=== PATIENT | female | born 1955 | race Caucasian/White ===

== ENCOUNTER 2016-12-26 09:38 | Outpatient (CLI) | payer BC ==
--- NOTE | 2016-12-26 10:06 | MMO ---
BILATERAL SCREENING MAMMOGRAM: DATE: 12/26/2016 HISTORY: A 61-year-old female for screening mammography. COMPARISON: 11/11/2010, 12/05/2009, 12/01/2008. FINDINGS: Bilateral MLO and CC views of the breasts show scattered fibroglandular breast tissue. Benign-appear ing calcifications are seen in both breasts. There is no evidence of suspicious mass, suspicious clu ster of microcalcifications, or area of architectural distortion. Interpretation of this mammogram was performed with the assistance of computer-aided detection. IMPRESSION: BIRADS 2: Benign Finding(s) Annual screening mammography is recommended. POS: MARY
== END 2016-12-26 09:39 | disposition home or self-care (01) ==
LOC: MAMMO 09:38
PROVIDERS: ATTEND Family Medicine
DX: Z12.31 Encounter for screening mammogram for malignant neoplasm of breast (principal)
CPT/HCPCS: 77067; G0202

== ENCOUNTER 2017-05-25 11:15 | Outpatient (CLI) | payer BC ==
--- NOTE | 2017-05-25 12:35 | RAD ---
FIVE VIEWS LUMBAR SPINE: HISTORY: Radiating pain in back for 1 week, M54.32. FINDINGS: AP, lateral, coned down, flexion, and extension views lumbar spine are obtained. Images demonstrate 5 [id number] lumbar vertebrae. Disk space height loss with vacuum disk hernandez es seen throughout the lumbar spine. Anterior osteophytes are seen in the lumbar spine. There is mi ld anterolisthesis of L4 on L5. No evidence of abnormality is seen on flexion or extension. IMPRESSION: Multilevel lumbar changes of spondylosis. No evidence of acute fractures or bony lesions seen. POS: MARY
== END 2017-05-25 11:16 | disposition home or self-care (01) ==
LOC: SCSRAD 11:15
PROVIDERS: ATTEND Nurse Practitioner Family
DX: M54.32 Sciatica, left side (principal); M47.896 Other spondylosis, lumbar region
CPT/HCPCS: 72110

== ENCOUNTER 2017-06-01 12:29 | Outpatient (CLI) | payer BC ==
--- NOTE | 2017-06-01 15:47 | MRI ---
MRI OF LUMBAR SPINE WITHOUT CONTRAST: Date: 06/01/17 HISTORY: Spondylolisthesis, sciatica, pain. TECHNIQUE: Multiplanar, multisequence MR imaging of the lumbar spine is provided without contrast. FINDINGS: The sagittal STIR imaging demonstrates no focal area of osseous marrow edema. Assuming five lumbar-ty pe vertebral bodies, the conus medullaris terminate at the T12 level. T12-L1: There is disc space narrowing, disc desiccation, anterior osteophyte formation, and mild disc bulge. There is bilateral facet hypertrophy. There is no significant central canal or neural foraminal steno sis. L1-2: There is disc space narrowing, disc desiccation, and disc bulge with a small central disc protrusion demonstrating minimal inferior migration. Disc protrusion also demonstrates extension into the left p aracentral region and left foraminal region. There is minimal left lateral recess stenosis/left neura l foraminal stenosis. No significant right neural foraminal stenosis. L2-3: There is disc space narrowing, disc desiccation, and disc bulge. There is a left paracentral disc her niation with inferior migration causing a mild degree of left lateral recess stenosis. There is bilat eral facet and uncovertebral osteophyte formation with no significant neural foraminal stenosis on ei ther side. L3-4: There is disc space narrowing, disc desiccation, and mild disc bulge, as well as moderate bilateral f acet hypertrophy and hypertrophy of ligamentum flavum, right greater than left. There is mild central canal stenosis. There is mild right neural foraminal stenosis and mild right lateral recess stenosis . No significant left neural foraminal stenosis. L4-5: There is anterolisthesis of L4 on L5 measuring approximately 1.0 cm. There is a probable unilateral L 4 pars defect on the right. There is disc bulge and prominent facet hypertrophy, left greater than ri ght. There is moderate central canal stenosis and prominent left lateral recess stenosis. There is se maciej left neural foraminal stenosis and moderate right neural foraminal stenosis. L5-S1: There is disc space narrowing and disc desiccation with prominent bilateral facet hypertrophy. Questi on unilateral right-sided pars defect at L5. No significant central canal stenosis. There is moderate /severe left neural foraminal stenosis. There is no significant right neural foraminal stenosis. The imaged retroperitoneal structures appear grossly unremarkable. IMPRESSION: Multilevel degenerative change noted within the lumbar spine. Question unilateral right-sided pars de fects at L4 and L5. There is prominent lower lumbar spine neural foraminal stenosis on the left at L4 -5 and L5-S1. Evaluation for underlying pars defects would be better assessed via follow-up lumbar sp ine CT exam. POS: MARY
== END 2017-06-01 12:30 | disposition home or self-care (01) ==
LOC: SCSMRI 12:29
PROVIDERS: ATTEND Family Medicine
DX: M54.32 Sciatica, left side (principal); M43.16 Spondylolisthesis, lumbar region; M47.896 Other spondylosis, lumbar region; M48.061 Spinal stenosis, lumbar region without neurogenic claudication
CPT/HCPCS: 72148

== ENCOUNTER 2017-07-16 08:00 | Outpatient (CLI) | payer BC ==
--- NOTE | 2017-07-16 10:36 | RAD ---
LUMBAR SPINE 4 VIEWS: Date: 07/16/17 HISTORY: Low back pain. FINDINGS: There are five lumbar-type vertebrae. Pedicles are intact. Prominent S-shaped rotatory scoliotic curv ature is apparent on the frontal view. Vertebral body heights are maintained. Disc space narrowing is present at the upper four levels. There is minimal degenerative retrolisthesi s at the L1-2 and L2-3 levels, and Grade I spondylolisthesis at the L4-5 level without abnormal trans lational motion upon flexion or extension. Osteophytosis is present throughout the vertebral bodies a nd facets. IMPRESSION: Prominent lumbar spondylosis. No abnormal translational motion or other acute osseous abnormalities. POS: STACEY
--- NOTE | 2017-07-16 10:59 | CT ---
CT LUMBAR SPINE NONCONTRAST: DATE: 07/16/17. HISTORY: A 62-year-old female with M54.16 lumbar radiculopathy, spondylolisthesis. Evaluate for pars defect ( spondylolysis). FINDINGS: There are 5 lumbar-type vertebrae. The vertebral body heights are maintained. Left lateral curvatur e of lower lumbar spine and mild right lateral curvature of upper lumbar spine. Grade I right latera l subluxation of L3 on L4. Grade I left lateral subluxation of L4 on L5. Disk space narrowing at all levels, moderate to severe at T11-T12, T12-L1, L1-2, L2-3, and L4-5. Dis k space narrowing moderate at L3-4 and L5-S1. Vacuum disk phenomenon at all levels except L3-4. Deg enerative facet changes are moderate bilaterally at L3-4, right worse than left, severe on the left a t L4-5, and severe on the left at L5-S1. T11-12: No central or neural foraminal stenosis. Minimal disk bulge. T12-L1: Minimal disk bulge. No central or neural foraminal stenosis. L1-2: Mild degenerative retrolisthesis of L1 on L2. Diffuse disk bulge-broad osteophytic bar comple x. Inferior migration of extruded disk material a short distance, central and left paracentral. Mil d central spinal canal stenosis. Mild bilateral neural foraminal stenosis. L2-3: Degenerative retrolisthesis of L2 on L3. In addition to mild diffuse disk bulge, there is a c entral and left paracentral disk extrusion (containing vacuum disk phenomenon) inferiorly migrating d own to the L3 mid pedicle level. Mild central spinal canal stenosis. Mild to moderate thoracic spin e stenosis. Mild bilateral neural foraminal stenosis. L3-4: Degenerative retrolisthesis of L3 on L4. Diffuse disk bulge. Moderate central spinal canal s tenosis. Moderate to severe thecal sac stenosis. Moderate to severe right neural foraminal stenosis . Mild to moderate left neural foraminal stenosis. L4-5: There is absence of the right facet joint due to absence of bone. This appears to be due to r ight L4 inferior facetectomy and right superior L5 facetectomy. This, together with the severe left degenerative facet disease, causes a grade I anterolisthesis of L4 on L5. Diffuse disk bulge. Moder ate to severe right neural foraminal stenosis. Very severe left neural foraminal stenosis. Severe c entral spinal canal stenosis. There is a left L5 laminectomy defect. L5-S1: No high-grade right neural foraminal stenosis. Moderate left neural foraminal stenosis. No central spinal canal stenosis. The right facet joint is hypoplastic, apparently on a developmental b asis. Furthermore, there is also a right L5 chronic pars interarticular defect, with mild displaceme nt. Severe left facet DJD. IMPRESSION: 1. Lumbar spondylosis, with multilevel high-grade degenerative disk disease and multilevel high-grad e facet osteoarthrosis. 2. Grade I spondylolisthesis at L4-5 due to a combination of right-sided facetectomy and very severe left facet osteoarthrosis. 3. At L5-S1, there is no spondylolisthesis, but there is severe left facet osteoarthrosis, hypoplast ic right facet joint, and unilateral right spondylolysis. 4. Multilevel high-grade neural foraminal stenosis, including severe. 5. Severe central spinal canal stenosis at L4-5. POS: MARY
== END 2017-07-16 08:01 | disposition home or self-care (01) ==
LOC: SCSCT 08:00
PROVIDERS: ATTEND Physician Assistant Surgical
DX: M47.26 Other spondylosis with radiculopathy, lumbar region (principal); M43.16 Spondylolisthesis, lumbar region; M99.83 Other biomechanical lesions of lumbar region; M48.061 Spinal stenosis, lumbar region without neurogenic claudication
CPT/HCPCS: 72120; 72131

== ENCOUNTER 2018-08-23 07:42 | Outpatient (CLI) | payer BC ==
--- NOTE | 2018-08-23 08:40 | MMO ---
Bilateral MAMMO Bilat Screen [facility]. CLINICAL HISTORY: Patient is 63 years old and is seen for screening. The patient has no family history of breast cancer. The patient has no personal history of cancer. The patient has a history of bilateral Breast reduction in 1991. VIEWS: The views performed were: bilateral craniocaudal with tomosynthesis and bilateral mediolateral oblique with tomosynthesis. FILMS COMPARED: The present examination has been compared to prior imaging studies performed at [facility] on 12/05/2009, 12/12/2010 and 12/26/2016. MAMMOGRAM FINDINGS: There are scattered fibroglandular densities. There are stable benign appearing calcifications seen in both breasts. There are no suspicious masses, suspicious calcifications, or new areas of architectural distortion. IMPRESSION: THERE IS NO MAMMOGRAPHIC EVIDENCE OF MALIGNANCY. A ROUTINE FOLLOW-UP MAMMOGRAM IN 1 YEAR IS RECOMMENDED. THE RESULTS OF THIS EXAM WERE SENT TO THE PATIENT. ACR BI-RADS Category 2 - Benign finding MAMMOGRAPHY NOTE: 1. A negative mammogram report should not delay a biopsy if a dominant of clinically suspicious mass is present. 2. Approximately 10% to 15% of breast cancers are not detected by mammography. 3. Adenosis and dense breasts may obscure an underlying neoplasm.
== END 2018-08-23 07:43 | disposition home or self-care (01) ==
LOC: BICMAMMO 07:42
PROVIDERS: ATTEND Family Medicine
DX: Z12.31 Encounter for screening mammogram for malignant neoplasm of breast (principal)
CPT/HCPCS: 77063; 77067

== ENCOUNTER 2019-12-28 08:03 | Outpatient (CLI) | payer BC ==
--- NOTE | 2019-12-28 08:59 | MMO ---
Bilateral MAMMO Bilat Screen [facility]. CLINICAL HISTORY: Patient is 64 years old and is seen for screening. The patient has no family history of breast cancer. The patient has no personal history of cancer. The patient has a history of bilateral Breast reduction in 1991. VIEWS: The views performed were: bilateral craniocaudal with tomosynthesis and bilateral mediolateral oblique with tomosynthesis. FILMS COMPARED: The present examination has been compared to prior imaging studies performed at [facility] on 12/05/2009, 12/12/2010, 12/26/2016 and 08/23/2018. This study has been interpreted with the assistance of computer-aided detection. MAMMOGRAM FINDINGS: There are scattered fibroglandular densities. There are stable benign appearing calcifications seen in both breasts. There are no suspicious masses, suspicious calcifications, or new areas of architectural distortion. IMPRESSION: THERE IS NO MAMMOGRAPHIC EVIDENCE OF MALIGNANCY. A ROUTINE FOLLOW-UP MAMMOGRAM IN 1 YEAR IS RECOMMENDED. THE RESULTS OF THIS EXAM WERE SENT TO THE PATIENT. ACR BI-RADS Category 2 - Benign finding MAMMOGRAPHY NOTE: 1. A negative mammogram report should not delay a biopsy if a dominant of clinically suspicious mass is present. 2. Approximately 10% to 15% of breast cancers are not detected by mammography. 3. Adenosis and dense breasts may obscure an underlying neoplasm. Reported by: BECCA KWAN MD Electonically Signed: [id number]
== END 2019-12-28 08:04 | disposition home or self-care (01) ==
LOC: BICMAMMO 08:03
PROVIDERS: ATTEND Family Medicine
DX: Z12.31 Encounter for screening mammogram for malignant neoplasm of breast (principal); Z98.82 Breast implant status
CPT/HCPCS: 77063; 77067

== ENCOUNTER 2021-01-15 07:59 | Outpatient (CLI) | payer BC | END 2021-01-15 08:00 | disposition home or self-care (01) | LOC: BICMAMMO 07:59 | PROVIDERS: ATTEND Family Medicine | DX: Z12.31 Encounter for screening mammogram for malignant neoplasm of breast (principal); Z98.890 Other specified postprocedural states | CPT/HCPCS: 77063; 77067 ==

== ENCOUNTER 2022-01-20 07:50 | Outpatient (CLI) | payer BC | END 2022-01-20 07:51 | disposition home or self-care (01) | LOC: BICMAMMO 07:50 | PROVIDERS: ATTEND Family Medicine | DX: Z12.31 Encounter for screening mammogram for malignant neoplasm of breast (principal); Z98.890 Other specified postprocedural states | CPT/HCPCS: 77063; 77067 ==

== ENCOUNTER 2023-02-13 14:16 | Outpatient (CLI) | payer BC | END 2023-02-13 14:17 | disposition home or self-care (01) | LOC: BICRAD 14:16 | PROVIDERS: ATTEND Family Medicine | DX: Z01.818 Encounter for other preprocedural examination (principal) | CPT/HCPCS: 71046 ==

== ENCOUNTER 2023-02-19 14:22 | Outpatient (CLI) | payer BC | END 2023-02-19 14:23 | disposition home or self-care (01) | LOC: BICMAMMO 14:22 | PROVIDERS: ATTEND Family Medicine | DX: R92.8 Other abnormal and inconclusive findings on diagnostic imaging of breast (principal) | CPT/HCPCS: G0279 ==

== ENCOUNTER 2024-03-14 07:51 | Outpatient (CLI) | payer BC | END 2024-03-14 07:52 | disposition home or self-care (01) | LOC: BICMAMMO 07:51 | PROVIDERS: ATTEND Family Medicine | DX: Z12.31 Encounter for screening mammogram for malignant neoplasm of breast (principal); Z98.890 Other specified postprocedural states | CPT/HCPCS: 77063; 77067 ==

== ENCOUNTER 2024-11-01 10:18 | Outpatient (CLI) | payer BC | END 2024-11-01 10:19 | disposition home or self-care (01) | LOC: BICRAD 10:18 | PROVIDERS: ATTEND Family Medicine | DX: Z00.00 Encounter for general adult medical examination without abnormal findings (principal); R10.9 Unspecified abdominal pain; M47.819 Spondylosis without myelopathy or radiculopathy, site unspecified | CPT/HCPCS: 74019 ==